=== PATIENT | female | born 1955 | race Caucasian/White ===

== ENCOUNTER 2018-03-21 11:20 | Emergency (ER) | payer OTHER ==
[2018-03-21 11:20] VITALS: BMI 26.4
[2018-03-21 12:00] VITALS: RESP 16; O2SAT 98
[2018-03-21] MEDS: Sodium Chloride 0.9% 1,000 ML IV STA (14:00)
[2018-03-21] MEDS: Clindamycin 600mg/50ml NS 600 MG/50 ML BAG IVPB ONE (14:00)
[2018-03-21 14:04] LABS: BASO % 0.5 % (0.0-2.0); EOS # 0.1 K/uL (0.0-0.7); EOS % 2.6 % (0.0-4.0); HEMOGLOBIN 12.6 g/dL (12.0-16.0); LYMPH % 19.5 % (20.0-40.0); MEAN CORPUSCULAR HEMOGLOBIN 32.4 pg (27.0-31.0); MEAN CORPUSCULAR HGB CONC 33.1 g/dL (33.0-37.0); MEAN PLATELET VOLUME 9.3 fl (7.2-11.7); MONO # 0.3 K/uL (0.0-0.8); MONO % 6.1 % (0.0-10.0); NEUT # 3.5 K/uL (1.8-7.0); NEUT % 71.3 % (50.0-75.0); RBC 3.87 Mil/uL (3.80-5.20); RED CELL DISTRIBUTION WIDTH 12.6 % (11.5-14.5); WHITE BLOOD COUNT 4.9 K/uL (4.8-10.8)
[2018-03-21 14:10] LABS: ALB/GLOB RATIO 1.3 (1.0-2.1); ALBUMIN 4.6 g/dL (3.5-5.0); ALT/SGPT 26 U/L (9-52); AST/SGOT 32 U/L (14-36); BLOOD UREA NITROGEN 16 mg/dl (7-17); CALCIUM 9.6 mg/dL (8.4-10.2); GFR NON-AFRICAN AMERICAN > 60
[2018-03-21] MEDS ORDERED: Lidocaine 2% MPF (5 ml) Inj ONE (14:19)
[2018-03-21] MEDS: Lidocaine PF 2% (5 ml) Inj (For Cardiac Arrhy) IJ STA (14:40)
--- NOTE | 2018-03-21 14:49 | ED PDOC ---
Upper Extremity Pain/Injury Time Seen by Provider: 03/21/18 12:23 Chief Complaint (Nursing): Upper Extremity Problem/Injury Chief Complaint (Provider): Upper Extremity Problem/Injury History Per: Patient, Chargem[employer] Analyst ([id number]) History/Exam Limitations: no limitations Onset/Duration Of Symptoms: Days (x6) Current Symptoms Are (Timing): Still Present Additional Complaint(s): 62 year old female presents to the ED complaining of left thumb pain. Patient reports she cut herself with a cardboard box 6 days ago and was seen by her PMD. At that time, she was given tetanus vaccination, Bactrim, penicillin, and oral antibiotics. A day later, she had redness from the thumb to the forearm which has improved greatly. She is now, however, having pain and swelling on the left thumb. PMD: [facility] Tran Past Medical History Reviewed: Historical Data, Nursing Documentation, Vital Signs Vital Signs: Last Vital Signs Temp 98.1 F 03/21/18 11:57 Pulse 95 H 03/21/18 11:57 Resp 16 03/21/18 11:57 BP 134/79 03/21/18 11:57 Pulse Ox 98 03/21/18 11:57 - Medical History PMH: Arthritis, Depression Denies: Chronic Kidney Disease - Surgical History Surgical History: No Surg Hx - Family History Family History: States: Unknown Family Hx - Social History Current smoker - smoking cessation education provided: No Alcohol: None - Home Medications Home Medications: Ambulatory Orders Medication Instructions Recorded Acetaminophen/Oxycodone Hydr 1 tab PO Q6 PRN #12 tab 03/29/14 [Percocet 325 mg-5 mg] Aspirin 81 mg PO 03/29/14 Escitalopram [Lexapro] 10 mg PO DAILY 03/29/14 Hydroxychloroquine Sulfate 03/29/14 [Plaquenil] Naproxen 500 mg PO Q12 #20 tab 03/29/14 - Allergies Allergies/Adverse Reactions: Allergies Allergy/AdvReac Type Severity Reaction Status Date / Time No Known Allergies Allergy Verified 03/21/18 11:54 Review of Systems ROS Statement: Except As Marked, All Systems Reviewed And Found Negative Musculoskeletal: Positive for: Other (Left thumb pain and swelling) Physical Exam - Reviewed Nursing Documentation Reviewed: Yes Vital Signs Reviewed: Yes - Physical Exam Appears: Positive for: Non-toxic, No Acute Distress Head Exam: Positive for: ATRAUMATIC, NORMOCEPHALIC Skin: Positive for: Normal Color, Warm, Dry Eye Exam: Positive for: Normal appearance Neck: Positive for: Normal, Painless ROM Cardiovascular/Chest: Positive for: Regular Rate, Rhythm. Negative for: Murmur Respiratory: Positive for: Normal Breath Sounds. Negative for: Wheezing, Respiratory Distress Extremity: Positive for: Normal ROM, Other (Erythema and edema of the left thumb; large blister on posterior of left thumb) Neurologic/Psych: Positive for: Alert, Oriented. Negative for: Motor/Sensory Deficits - Laboratory Results Result Diagrams: 03/21/18 13:45 03/21/18 13:45 - ECG O2 Sat by Pulse Oximetry: 98 (RA) Pulse Ox Interpretation: Normal Medical Decision Making Medical Decision Making: Initial Impression: Left thumb swelling and pain Initial Plan: --CMP --CBC --Clindamycin 600mg IV --Sodium chloride 1000mL IV --Blood culture --Wound culture 15:00 Incision and drainage performed by Dr. Duong. Discussed follow up on Wednesday and patient instructed to not get the dressing wet. Scribe Attestation: Documented by Rosales Dupont acting as a scribe for Elena MARCUS. Provider Scribe Attestation: All medical record entries made by the Scribe were at my direction and personally dictated by me. I have reviewed the chart and agree that the record accurately reflects my personal performance of the history, physical exam, medical decision making, and the department course for this patient. I have also personally directed, reviewed, and agree with the discharge instructions and disposition. Disposition - Clinical Impression Clinical Impression: Abscess of finger - Patient ED Disposition Is Patient to be Admitted: No Counseled Patient/Family Regarding: Diagnosis, Need For Followup, Rx Given - Disposition Referrals: Liz Duong MD [Medical Doctor] - Disposition: Routine/Home Disposition Time: 14:45 Condition: GOOD Instructions: Abscess Incision and Drainage Forms: [employer] ([place]oz[place]ican), [facility] School/Work Excuse Print Language: MAORI
[2018-03-21 15:18] VITALS: BP 132/74; PULSE 88; TEMP 98
== END 2018-03-21 15:28 | disposition home or self-care (01) ==
LOC: H.ER 11:20
DX: L02.512 Cutaneous abscess of left hand (principal)
CPT/HCPCS: 10060; 80053; 85025; 87040; 87070; 99282; J7030